=== PATIENT | male | born 1945 | race Caucasian/White ===

== ENCOUNTER 2020-06-18 09:00 | Outpatient (CLI) | payer MEDICARE, OTHER | END 2020-06-18 09:01 | disposition short-term general hospital (02) | LOC: EMS 09:00 | DX: R07.9 Chest pain, unspecified (principal) | CPT/HCPCS: A0425; A0427 ==

== ENCOUNTER 2020-12-24 08:00 | Outpatient (CLI) | payer MEDICARE, OTHER | END 2020-12-24 23:59 | disposition home or self-care (01) | LOC: LAB.N 08:00 | PROVIDERS: ATTEND Physician Assistant Medical | DX: R63.4 Abnormal weight loss (principal) ==

== ENCOUNTER 2020-12-24 14:36 | Outpatient (CLI) | payer MEDICARE, OTHER ==
[2020-12-24 17:54] LABS: BASOPHILS % (AUTO) 0.3 %; EOSINOPHILS % (AUTO) 0.3 %; HCT - HEMATOCRIT 44.4 % (42.0-52.0); HGB - HEMOGLOBIN 14.6 g/dL (14.0-18.0); LYMPHOCYTES # (AUTO) 0.9 10^3/uL (1.5-3.5); LYMPHOCYTES % (AUTO) 13.5 %; MEAN CORPUSCULAR HEMOGLOBIN 29.9 pg (27.0-31.0); MEAN CORPUSCULAR HGB CONC 32.9 g/dL (32.0-36.0); MEAN CORPUSCULAR VOLUME 90.8 fL (80.0-94.0); MEAN PLATELET VOLUME 10.5 fL (7.4-11.4); MONOCYTES # (AUTO) 0.2 10^3/uL (0.0-1.0); MONOCYTES % (AUTO) 3.5 %; NEUTROPHILS # (AUTO) 5.3 10^3/uL (1.5-6.6); NEUTROPHILS % (AUTO) 80.7 %; PLT - PLATELET COUNT 233 10^3/uL (130-450); RED BLOOD COUNT 4.89 10^6/uL (4.70-6.10); RED CELL DISTRIBUTION WIDTH 15.3 % (12.0-15.0); WHITE BLOOD COUNT 6.6 x10^3/uL (4.8-10.8)
[2020-12-24 18:33] LABS: ALBUMIN 3.6 g/dL (3.2-5.5); ALBUMIN/GLOBULIN RATIO 1.1 (1.0-2.2); BILIRUBIN,TOTAL 0.9 mg/dL (0.2-1.0); CREATININE 1.2 mg/dL (0.6-1.2); TOTAL PROTEIN 6.8 g/dL (6.7-8.2)
[2020-12-24 19:04] LABS: CALCIUM 9.2 mg/dL (8.5-10.3); POTASSIUM 4.5 mmol/L (3.5-5.0)
[2020-12-24 20:51] LABS: ESTIMATED AVERAGE GLUCOSE 120 mg/dL (70-100); HEMOGLOBIN A1c% 5.8 % (4.27-6.07)
== END 2020-12-24 23:59 ==
LOC: LAB.N 14:36
PROVIDERS: ATTEND Physician Assistant Medical
DX: U09.9 Post COVID-19 condition, unspecified (principal); R63.4 Abnormal weight loss; R73.9 Hyperglycemia, unspecified
CPT/HCPCS: 36415; 80053; 83036; 84443; 85025

== ENCOUNTER 2020-12-24 14:37 | Outpatient (CLI) | payer MEDICARE, OTHER ==
--- NOTE | 2020-12-24 15:00 | XRAY Report ---
PROCEDURE: Chest 2 View X-Ray INDICATIONS: ACUTE POST COVID TECHNIQUE: 2 view(s) of the chest. COMPARISON: None available. FINDINGS: Surgical changes and devices: Post median sternotomy and CABG. Right humerus ORIF. Left humerus ancho r. Lungs and pleura: No pleural effusions or pneumothorax. No consolidation. Mild bilateral and bibasil ar hazy airspace opacity. Mild peripheral interstitial prominence. Low lung volumes. Mediastinum: Mediastinal contours are normal. Heart size is normal. Bones and chest wall: No suspicious bony abnormalities. Soft tissues appear unremarkable. IMPRESSION: Mild hazy airspace opacity bilaterally. This could be seen in infectious/inflammatory etiology and/or atelectasis. Reviewed by: Gorge Rodriguez MD on 12/24/2020 2:59 PM PST Approved by: Gorge Rodriguez MD on 12/24/2020 2:59 PM [facility] Station ID: [id number]
== END 2020-12-24 23:59 | disposition home or self-care (01) ==
LOC: DI.N 14:37
PROVIDERS: ATTEND Physician Assistant Medical
DX: U09.9 Post COVID-19 condition, unspecified (principal)

== ENCOUNTER 2021-01-26 11:45 | Outpatient (CLI) | payer MEDICARE, OTHER ==
--- NOTE | 2021-01-26 12:46 | XRAY Report ---
PROCEDURE: Chest 2 View X-Ray INDICATIONS: PNEUMONIA TECHNIQUE: 2 view(s) of the chest. COMPARISON: CXR 12/24/2020. CT chest 03/17/2010. FINDINGS: Surgical changes and devices: Post median sternotomy and CABG. Right shoulder ORIF. Left shoulder anc hor. Lungs and pleura: No pleural effusions or pneumothorax. Prominent interstitial markings bilaterally. Mild retrocardiac opacity. Overall this is not significantly changed. Mediastinum: Mediastinal contours are normal. Heart size is normal. Bones and chest wall: No suspicious bony abnormalities. Soft tissues appear unremarkable. IMPRESSION: Overall no significant interval change. Persistent prominent interstitial markings and hazy opacity. This could be seen in the setting of pne umonia. Interstitial lung disease could have a similar appearance. Consider further evaluation with CT of the chest or high-resolution chest CT. Reviewed by: Gorge Rodriguez MD on 01/26/2021 12:44 PM PST Approved by: Gorge Rodriguez MD on 01/26/2021 12:44 PM PST Station ID: [id number]
== END 2021-01-26 23:59 ==
LOC: DI.N 11:45
PROVIDERS: ATTEND Family Medicine
DX: J18.9 Pneumonia, unspecified organism (principal); R91.8 Other nonspecific abnormal finding of lung field

== ENCOUNTER 2021-03-29 08:02 | Outpatient (CLI) | payer MEDICARE, OTHER ==
--- NOTE | 2021-03-29 11:12 | XRAY Report ---
PROCEDURE: Foot 3 View LT INDICATIONS: GOUT TECHNIQUE: 3 views of the foot were acquired. COMPARISON: None FINDINGS: Bones: No fractures or dislocations. No suspicious bony lesions. Soft tissues: No tibiotalar joint effusion. Achilles tendon appears normal. Multiple densities note d in the soft tissues adjacent to the first MTP joint compatible with tophi. IMPRESSION: 1. Tophaceous gout. 2. No fracture. No acute osseous lesion. If there persistent symptoms or continued clinical concern f or pathology, then repeat plain film radiographs (7-10 days) or advanced imaging (CT, MR, bone scan) should be considered for further evaluation. Reviewed by: Alondra Saini MD, PhD on 03/29/2021 11:11 AM PST Approved by: Alondra Saini MD, PhD on 03/29/2021 11:11 AM PST Station ID: [id number]
== END 2021-03-29 23:59 | disposition home or self-care (01) ==
LOC: DI.N 08:02
PROVIDERS: ATTEND Family Medicine
DX: M1A.9XX1 Chronic gout, unspecified, with tophus (tophi) (principal)
CPT/HCPCS: 36415; 80048; 84550

== ENCOUNTER 2021-03-29 08:24 | Outpatient (CLI) | payer MEDICARE, OTHER ==
[2021-03-29 13:33] LABS: CALCIUM 8.9 mg/dL (8.5-10.3); CREATININE 1.1 mg/dL (0.6-1.2); URIC ACID 6.4 mg/dL (2.6-7.2)
== END 2021-03-29 23:59 | disposition home or self-care (01) ==
LOC: LAB.N 08:24
PROVIDERS: ATTEND Family Medicine
DX: M10.9 Gout, unspecified (principal)
CPT/HCPCS: 36415; 80048; 84550

== ENCOUNTER 2023-03-02 09:30 | Day surgery (SDC) | payer MEDICARE, OTHER ==
--- NOTE | 2023-03-02 10:03 | ED Physician Documentation ---
History of Present Illness - Stated complaint Stated Complaint: UNABLE TO SWALLOW - Chief complaint Chief Complaint: Heent - History obtained from History obtained from: Patient - Additonal information Additional information: 77-year-old gentleman with history of esophageal strictures, last endoscopy and dilatation was about 6 years ago he says. He says that everybody in the family gets these, his son, his sister, his mother. He is on a PPI. For the last month he has developed progressive dysphagia such that over the last couple of days cannot even take liquids or yogurt and the only thing he is keeping down at this point is ice cubes because they melt slowly. When he does try to swallow anything else he develops immense chest pain and vomits. PD PAST MEDICAL HISTORY - Past Medical History Past Medical History: Yes Cardiovascular: [place] HEENT: Other Musculoskeletal: Gout - Past Surgical History Past Surgical History: Yes Ortho: Other Cardiovascular: Coronary stent - Present Medications Home Medications: Ambulatory Orders Medication Instructions Recorded Confirmed Colchicine [Colcrys] 0.6 mg PO ONCE 03/05/13 03/05/13 Zolpidem [Ambien] 5 mg PO HS 03/05/13 03/05/13 Ondansetron Odt [Zofran] 4 mg TL Q6H PRN #10 tablet 03/06/13 - Allergies Allergies/Adverse Reactions: Allergies Allergy/AdvReac Type Severity Reaction Status Date / Time Penicillins Allergy Mild Unknown Verified 03/02/23 09:53 Sulfa (Sulfonamide Allergy Rash Verified 03/02/23 09:53 Antibiotics) - Social History Does the pt smoke?: No Smoking Status: Never smoker Does the pt drink ETOH?: No Does the pt have substance abuse?: No - Immunizations Immunizations are current?: Yes - POLST Patient has POLST: No PD ED PE NORMAL - Vitals Vital signs reviewed: Yes - General General: Alert and oriented X 3, No acute distress - Neck Neck: Supple, no meningeal sign - Cardiac Cardiac: RRR, No murmur - Respiratory Respiratory: No respiratory distress, Clear bilaterally - Abdomen Abdomen: Non tender - Neuro Neuro: Alert and oriented X 3, Normal speech - Psych Psych: Normal mood, Normal affect Results - Vitals Vitals: Vital Signs - 24 hr 03/02/23 09:50 Temperature 36.0 C L Heart Rate 65 Respiratory 20 Rate Blood Pressure 118/65 O2 Saturation 99 Oxygen O2 Source Room air - Labs Labs: Laboratory Tests 03/02/23 03/02/23 10:22 10:22 WBC 6.9 RBC 5.51 Hgb 16.1 Hct 49.8 MCV 90.4 MCH 29.2 MCHC 32.3 RDW 13.4 Plt Count 214 MPV 9.7 Neut # (Auto) 3.6 Lymph # (Auto) 2.3 [place] # (Auto) 0.7 Eos # (Auto) 0.2 Baso # (Auto) 0.1 Absolute Nucleated RBC 0.00 Nucleated RBC % 0.0 Sodium 137 Potassium 4.0 Chloride 101 Carbon Dioxide 30 Anion Gap 6.0 BUN 19 Creatinine 1.2 Estimated GFR (MDRD) 59 L Glucose 89 Calcium 10.1 Total Bilirubin 1.1 H AST 27 ALT 25 Alkaline Phosphatase 43 Total Protein 7.7 Albumin 4.5 Globulin 3.2 Albumin/Globulin Ratio 1.4 PD Medical Decision Making - ED course ED course: 77-year-old gentleman with progressive dysphagia related to likely strictures. Spoke with our on-call surgeon, Dr. Yee at 10 AM who will see the patient for likely upper endoscopy. CBC and CMP unremarkable Departure - Departure Disposition: ED Transfer to [facility] Clinical Impression: Esophageal obstruction Condition: Stable Forms: PCP List
[2023-03-02 10:28] LABS: BASOPHILS # (AUTO) 0.1 10^3/uL (0.0-0.1); BASOPHILS % (AUTO) 1.6 %; EOSINOPHILS # (AUTO) 0.2 10^3/uL (0.0-0.7); EOSINOPHILS % (AUTO) 3.3 %; HCT - HEMATOCRIT 49.8 % (42.0-52.0); HGB - HEMOGLOBIN 16.1 g/dL (14.0-18.0); LYMPHOCYTES # (AUTO) 2.3 10^3/uL (1.5-3.5); LYMPHOCYTES % (AUTO) 32.7 %; MEAN CORPUSCULAR HEMOGLOBIN 29.2 pg (27.0-31.0); MEAN CORPUSCULAR HGB CONC 32.3 g/dL (32.0-36.0); MEAN CORPUSCULAR VOLUME 90.4 fL (80.0-94.0); MEAN PLATELET VOLUME 9.7 fL (7.4-11.4); MONOCYTES # (AUTO) 0.7 10^3/uL (0.0-1.0); MONOCYTES % (AUTO) 9.9 %; NEUTROPHILS # (AUTO) 3.6 10^3/uL (1.5-6.6); NEUTROPHILS % (AUTO) 52.2 %; PLT - PLATELET COUNT 214 10^3/uL (130-450); RED BLOOD COUNT 5.51 10^6/uL (4.70-6.10); RED CELL DISTRIBUTION WIDTH 13.4 % (12.0-15.0); WHITE BLOOD COUNT 6.9 x10^3/uL (4.8-10.8)
[2023-03-02 10:42] LABS: ALBUMIN 4.5 g/dL (3.2-5.5); ALBUMIN/GLOBULIN RATIO 1.4 (1.0-2.2); BILIRUBIN,TOTAL 1.1 mg/dL (0.2-1.0); CALCIUM 10.1 mg/dL (8.5-10.3); CREATININE 1.2 mg/dL (0.6-1.3); TOTAL PROTEIN 7.7 g/dL (6.4-8.9)
--- NOTE | 2023-03-02 11:37 | CONSULTATION NOTE ---
Referring Provider Name of Referring Provider:: Dr. Jonathan White Consult Date: 03/02/23 Chief Complaint - Chief Complaint Chief Complaint: Dysphagia with a reported history of esophageal stenosis requiring numerous History of Present Illness - Admitted From Admitted From:: Not admittedoutpatient - History Obtained From Records Reviewed: Yes History obtained from: Patient and chart Exam Limitations: None - History of Present Illness HPI Comment/Other: I am asked to see this very pleasant 77-year-old male by Dr. Jonathan White for progressive dysphagia. The history that I have obtained is that his mother, his sister, his son, and he have all had esophageal stenosis requiring dilation. He states that this has not been worked up despite the family history. The patient states that he believes that there is a component of spasm to this as well. He describes it as a muscle that wanted something go through and that all of a sudden it will go through. For breakfast he normally eats some yogurt with blueberries and a cup of coffee. For lunch around 1:00 he will have fish for "something soft." He denies any hematemesis, melena, hematochezia, or weight loss. 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 He likes going by the name Mayco. History - Past Medical History Cardiovascular: reports: [place] HEENT: reports: Other Musculoskeletal: reports: Gout MRSA Hx?: No - Past Surgical History Ortho: reports: Rotator cuff repair, Shoulder arthroplasty, Other Cardiovascular: reports: CABG, Coronary stent - POLST Patient has POLST: No Meds/Allgy - Home Medications Home Medications: Ambulatory Orders Medication Instructions Recorded Confirmed Colchicine [Colcrys] 0.6 mg PO ONCE 03/05/13 03/05/13 Zolpidem [Ambien] 5 mg PO HS 03/05/13 03/05/13 Ondansetron Odt [Zofran] 4 mg TL Q6H PRN #10 tablet 03/06/13 Omeprazole 20 mg ORAL 03/02/23 - Allergies Allergies/Adverse Reactions: Allergies Allergy/AdvReac Type Severity Reaction Status Date / Time Penicillins Allergy Mild Unknown Verified 03/02/23 09:53 Sulfa (Sulfonamide Allergy Rash Verified 03/02/23 09:53 Antibiotics) Review of Systems - Constitutional Constitutional: denies: Fatigue, Fever, Chills - Eyes Eyes: denies: Pain, Irritation - Ears, Nose & Throat Ears, Nose & Throat: denies: Ear pain - Cardiovascular Cariovascular: denies: Chest pain - Respiratory Respiratory: denies: Cough, Sputum production, Wheezing - Gastrointestinal Gastrointestinal: reports: Nausea, Vomiting, Reflux/heartburn. denies: A bdominal pain, Diarrhea, Change in bowel habits, Rectal bleeding, Black stools, Bloody stools Exam - Vital Signs Reviewed Vital Signs: Yes Vital Signs: Vital Signs x48h Temp Pulse Resp BP Pulse Ox 03/02/23 09:50 36.0 C L 65 20 118/65 99 - Physical Exam General Appearance: positive: No acute distress Eyes Bilateral: positive: No lid inflammation, Conjunctivae nml, No scleral icterus ENT: positive: No signs of dehydration Neck: positive: Trachea midline Respiratory: positive: Chest non-tender, No respiratory distress, Breath sounds nml Cardiovascular: positive: Regular rate & rhythm, No murmur, No gallop Abdomen: positive: Non-tender, No organomegaly, Nml bowel sounds, No distention Skin: positive: Color nml, No rash, Warm, Dry Extremities: positive: Non-tender, Nml appearance Neurologic/Psychiatric: positive: Oriented x3, Motor nml, Sensation nml, Mood/affect nml Comments/Other: Patient evaluated in room 9 at [facility]'s emergency department. Conclusion/Plan - Lab Results Lab results reviewed: Yes Fish Bones: 03/02/23 10:22 03/02/23 10:22 - Other Other Results/Comments: Esophagogastroduodenoscopy with likely dilation and possible biopsies. The indications, procedure, alternatives including no procedure at all, and possible complications including but not limited to perforation requiring operative rep air (which could not be done at this hospital), bleeding, and were fully explained the patient all questions were answered. Verbal and written consent was obtained. The patient will be maintained n.p.o. in preparation for this procedure. The anticipation is after the dilation this patient should be able to go home. I have asked the patient to let us know if there is any way for us to make his stay here [facility] more comfortable to please let us know. He stated that he would. CPT 32381 45 minutes of time was required to interview the patient, examined the patient, and complete the required paperwork The majority of the time was spent with the patient.
[2023-03-02] MEDS ORDERED: ONDANSETRON 4 MG/2 ML VIAL IVP PRN (11:43)
[2023-03-02] MEDS ORDERED: NALOXONE 0.4 MG/ML VIAL IVP PRN (11:43)
[2023-03-02] MEDS ORDERED: fentaNYL 100 MCG/2 ML VIAL IVP PRN (11:43)
[2023-03-02] MEDS ORDERED: MORPHINE 2 MG/ML CARPUJECT IVP PRN (11:43)
[2023-03-02] MEDS ORDERED: ePHEDrine 50 MG/ML VIAL IVP PRN (11:43)
[2023-03-02] MEDS ORDERED: HYDROmorphone 0.5 MG/0.5 ML SYRINGE IVP PRN (11:43)
[2023-03-02] MEDS ORDERED: METOCLOPRAMIDE 10 MG/2 ML VIAL IVP PRN (11:43)
[2023-03-02] MEDS ORDERED: ATROPINE ABBOJECT 1 MG/10 ML SYRINGE IVP PRN (11:43)
--- NOTE | 2023-03-02 11:43 | ANESTHESIA ---
Pre-Anesthesia VS, & Labs - Diagnosis esophageal stricture - Procedure EDG, dilation Vital Signs: Temp Pulse Resp BP Pulse Ox O2 Flow Rate 36.0 C L 65 20 118/65 99 03/02/23 09:50 03/02/23 09:50 03/02/23 09:50 03/02/23 09:50 03/02/23 09:50 Height: 5 ft 7 in Weight (kg): 78.925 kg Body Mass Index: 27.2 BMI Classification: Overweight - NPO Other (tried to eat yogert and blueberries this am and could not get it down, vomited per patient) - Lab Results Current Lab Results: Laboratory Tests 03/02/23 10:22: Sodium 137, Potassium 4.0, Chloride 101, Carbon Dioxide 30, Anion Gap 6.0, BUN 19, Creatinine 1.2, Estimated GFR (MDRD) 59 L, Glucose 89, Calcium 10.1, Total Bilirubin 1.1 H, AST 27, ALT 25, Alkaline Phosphatase 43, Total Protein 7.7, Albumin 4.5, Globulin 3.2, Albumin/Globulin Ratio 1.4 03/02/23 10:22: WBC 6.9, RBC 5.51, Hgb 16.1, Hct 49.8, MCV 90.4, MCH 29.2, MCHC 32.3, RDW 13.4, Plt Count 214, MPV 9.7, Neut # (Auto) 3.6, Lymph # (Auto) 2.3, [place] # (Auto) 0.7, Eos # (Auto) 0.2, Baso # (Auto) 0.1, Absolute Nucleated RBC 0.00, Nucleated RBC % 0.0 Fish Bones: 03/02/23 10:22 03/02/23 10:22 Home Medications and Allergies Home Medications: Ambulatory Orders Omeprazole 20 mg ORAL 03/02/23 Colchicine [Colcrys] 0.6 mg PO ONCE 03/05/13 Zolpidem [Ambien] 5 mg PO HS 03/05/13 Omeprazole 20 mg ORAL 03/02/23 Allergies/Adverse Reactions: Allergies Allergy/AdvReac Type Severity Reaction Status Date / Time Penicillins Allergy Mild Unknown Verified 03/02/23 09:53 Sulfa (Sulfonamide Allergy Rash Verified 03/02/23 09:53 Antibiotics) Anes History & Medical History - Anesthetic History Anesthesia Complications: reports: No previous complications - Medical History Cardiovascular: reports: [place] Musculoskeletal: reports: Gout Smoking Status: Never smoker - Surgical History Cardiothoracic: reports: CABG, Coronary stent Orthopedic: reports: Rotator cuff repair, Shoulder arthroplasty, Other Exam General: Alert, Oriented x3 Dental: WNL Mouth Opening: Greater than 4 Fingerbreadths Neck Mobility: Normal Mallampati classification: II Thyromental Distance: greater than 6 cm Respiratory: Lungs clear Cardiovascular: Regular rate Plan Anesthesia Type: General Consent for Procedure(s) Verified and Reviewed: Yes Code Status: Attempt Resuscitation ASA classification: 3-Severe systemic disease Is this case an emergency?: Yes
[2023-03-02] MEDS ORDERED: ROCURONIUM 50 MG/5 ML VIAL ONE (11:52)
[2023-03-02] MEDS ORDERED: PROPOFOL 200 MG/20 ML VIAL IVP ONE (11:52)
[2023-03-02] MEDS ORDERED: MIDAZOLAM 2 MG/2 ML VIAL ONE (11:53)
[2023-03-02] MEDS ORDERED: fentaNYL 100 MCG/2 ML VIAL ONE (11:53)
[2023-03-02] MEDS ORDERED: LACTATED RINGERS 1,000 ML IV SCH (12:00)
[2023-03-02] MEDS ORDERED: SUGAMMADEX 200 MG/2 ML VIAL IVP ONE (13:29)
[2023-03-02] MEDS ORDERED: LACTATED RINGERS 1,000 ML IV ONE (13:42)
[2023-03-02] MEDS ORDERED: LIDOCAINE TOPICAL 4% 50 ML BOTTLE ONE (13:58)
[2023-03-02 14:22] VITALS: BP 130/75; O2SAT 95
--- NOTE | 2023-03-02 18:10 | ANESTHESIA POST OP EVALUATION ---
Anesthesia Post Eval - Post Anesthesia Eval Vitals: Last Vital Signs Temp 36.8 C 03/02/23 13:59 Pulse 67 03/02/23 14:13 Resp 13 03/02/23 14:13 BP 130/75 03/02/23 14:13 Pulse Ox 95 03/02/23 14:13 O2 Flow Rate CV Function Including HR & BP: Stable Pain Control: Satisfactory Nausea & Vomiting: Negative Mental Status: Baseline Respiratory Status: Airway Patent Hydration Status: Satisfactory Anesthesia Complications: None
== END 2023-03-02 13:19 | disposition home or self-care (01) ==
LOC: ED 09:30 → SDS 13:18
PROVIDERS: ATTEND Surgery
PROC: 0DB38ZX Excision of Lower Esophagus, Via Natural or Artificial Opening Endoscopic, Diagnostic (ICD-10-PCS; principal; 2023-03-02 13:00)
DX: K22.2 Esophageal obstruction (principal); K22.89 Other specified disease of esophagus; R13.10 Dysphagia, unspecified; I25.2 Old myocardial infarction; Z95.1 Presence of aortocoronary bypass graft; Z95.5 Presence of coronary angioplasty implant and graft
CPT/HCPCS: 36415; 43239; 43249; 80053; 85025; 99284; 99285; J7120

== ENCOUNTER 2023-07-27 10:07 | Outpatient (CLI) | payer MEDICARE ==
--- NOTE | 2023-07-27 11:51 | XRAY Report ---
PROCEDURE: Chest 2V INDICATIONS: BRONCHITIS TECHNIQUE: 2 views of the chest were acquired. COMPARISON: CXR 01/26/2021. FINDINGS: Surgical changes and devices: Post median sternotomy. Coronary stent. Right shoulder ORIF. Left shou lder anchor. Lungs and pleura: No pleural effusions or pneumothorax. Lungs are clear. Mediastinum: Mediastinal contours appear normal. Heart size is normal. Bones and chest wall: No suspicious bony lesions. Prior right-sided rib fractures. Overlying soft t issues appear unremarkable. IMPRESSION: No acute cardiopulmonary process. Reviewed by: Gorge Rodriguez MD on 07/27/2023 11:50 AM PDT Approved by: Gorge Rodriguez MD on 07/27/2023 11:50 AM PDT Station ID: [id number]
== END 2023-07-27 10:08 | disposition home or self-care (01) ==
LOC: DI 10:07
PROVIDERS: ATTEND Physician Assistant Medical
DX: J40 Bronchitis, not specified as acute or chronic (principal)